=== PATIENT | female | born 1965 | race Caucasian/White ===

== ENCOUNTER → 2022-08-01 15:05 | Outpatient (BNVA) | payer OTHER, SELFPAY | PROVIDERS: Visit Provider Family Medicine | DX: R00.0 Tachycardia, unspecified (principal); E03.9 Hypothyroidism, unspecified | CPT/HCPCS: 80053; 80061; 84443; 85025 ==

== ENCOUNTER 2022-10-17 08:13 | Outpatient (CLI) | payer OTHER, SELFPAY ==
--- NOTE | 2022-10-17 08:25 | MM_ITS ---
WS: [id number] BILATERAL 3D TOMOSYNTHESIS DIGITAL SCREENING MAMMOGRAPHY WITH CAD CLINICAL INFORMATION: Z12.39 - Encounter for other screening for malignant neop... HISTORY: Screening mammogram. No current complaint COMPARISON: 2020 TECHNIQUE: Bilateral CC and MLO views. FINDINGS: Previous replacement of silicone breast implants with chronic nodular areas of extracapsula r silicone unchanged from previous Scattered fibroglandular densities bilaterally. Progressed slightly spiculated nodular density measur ing 8 mm upper outer LEFT breast adjacent to the implant. This is more prominent compared to previous . This may represent extracapsular silicone but Recommend further evaluation with LEFT diagnostic [place] mography and ultrasound. RIGHT breast is unremarkable. MM/[place] [id number] IMPRESSION: BI-RADS: 0-Incomplete: Need additional imaging evaluation FOLLOW UP: Need Additional Imaging Recommend further evaluation with LEFT diagnostic mammography and ultrasound.
== END 2022-10-17 08:14 | disposition home or self-care (01) ==
LOC: RAD 08:17
PROVIDERS: Visit Provider Family Medicine
DX: Z12.31 Encounter for screening mammogram for malignant neoplasm of breast (principal)
CPT/HCPCS: 77063; 77067

== ENCOUNTER → 2022-10-19 09:36 | Outpatient (BNVA) | payer OTHER, SELFPAY | PROVIDERS: Visit Provider Family Medicine | DX: Z12.4 Encounter for screening for malignant neoplasm of cervix (principal) | CPT/HCPCS: 87624 ==

== ENCOUNTER 2022-11-29 11:48 | Outpatient (CLI) | payer OTHER, SELFPAY ==
--- NOTE | 2022-11-29 11:52 | MM_ITS ---
WS: [id number] LEFT 3D TOMOSYNTHESIS DIGITAL MAMMOGRAPHY WITH CAD CLINICAL INFORMATION: ABNORMAL MAMMO HISTORY: Breast implants with previous revision additional views COMPARISON: 10/17/2022 TECHNIQUE: 3 views of the left breast were obtained. FINDINGS: Previous replacement of silicone breast implants with chronic nodular areas of extracapsula r silicone unchanged from previous. This partially compresses out on the spot compression views. Scattered fibroglandular densities of the left breast. Again seen is the 8 mm slightly spiculated nod ular density upper outer left breast adjacent to the implant. This is unchanged compared to previous. Ultrasound is pending. ULTRASOUND BREAST LEFT TECHNIQUE: Ultrasound left breast focused area of concern. CLINICAL INFORMATION: ABNORMAL MAMMO FINDINGS: Ultrasound upper outer quadrant left breast. At the 1 o'clock position 2 cm from the nipple there is a 1.2 x 1.2 x 0.7 cm dense shadowing focus adjacent to the implant compatible with extracapsular sili cone. No other suspicious findings. IMPRESSION: MM/[place] [id number] BI-RADS: 2-Benign FOLLOW UP: 1 Year Follow-up Recommend return to annual screening mammography.
== END 2022-11-29 11:49 | disposition home or self-care (01) ==
PROVIDERS: PCP Family Medicine; Visit Provider Family Medicine
DX: R92.8 Other abnormal and inconclusive findings on diagnostic imaging of breast (principal); Z98.82 Breast implant status
CPT/HCPCS: 76642; 77061; G0279

== ENCOUNTER → 2023-10-23 14:42 | Outpatient (BNVA) | payer OTHER, SELFPAY | PROVIDERS: PCP Family Medicine; Visit Provider Family Medicine | DX: Z13.6 Encounter for screening for cardiovascular disorders (principal); Z13.1 Encounter for screening for diabetes mellitus; Z13.220 Encounter for screening for lipoid disorders; R00.0 Tachycardia, unspecified; I10 Essential (primary) hypertension | CPT/HCPCS: 80053; 80061; 84443; 85025; 93005 ==

== ENCOUNTER 2023-12-02 09:17 | Outpatient (CLI) | payer OTHER, SELFPAY ==
--- NOTE | 2023-12-02 09:26 | MM_ITS ---
WS: [id number] BILATERAL SCREENING DIGITAL BREAST MAMMOGRAPHY WITH OPHELIA DISPLACEMENT VIEWS. CAD PERFORMED. HISTORY: SCREENING COMPARISON: 11/29/2022, 10/17/2022, 10/01/2019 Bilateral craniocaudal and mediolateral oblique views are performed with tomosynthesis and SM. Ophelia displacement views in CC and MLO projection also performed. Breasts composition: There are scattered areas of fibroglandular density. Implants are prepectoral. Nodular areas of increased density surrounding the LEFT breast implant have been previously described and consistent with extracapsular silicone. No suspicious mass or calcific ations. No interval change. The silicone has been present since 2019 surrounding the LEFT breast impl ant. MM/[place] [id number] IMPRESSION: BI-RADS: 2-Benign FOLLOW-UP: 1 Year Follow-up
== END 2023-12-02 09:18 | disposition home or self-care (01) ==
LOC: RAD 09:19
PROVIDERS: PCP Family Medicine; Visit Provider Family Medicine
DX: Z12.31 Encounter for screening mammogram for malignant neoplasm of breast (principal); R92.323 Mammographic fibroglandular density, bilateral breasts; Z98.82 Breast implant status
CPT/HCPCS: 77063; 77067

== ENCOUNTER → 2024-03-24 10:39 | Outpatient (BNVA) | payer OTHER, SELFPAY | PROVIDERS: PCP Family Medicine; Visit Provider Family Medicine | DX: J40 Bronchitis, not specified as acute or chronic (principal); J98.8 Other specified respiratory disorders; B97.89 Other viral agents as the cause of diseases classified elsewhere | CPT/HCPCS: 87400; 87426 ==

== ENCOUNTER → 2024-08-17 10:43 | Outpatient (BNVA) | payer OTHER, SELFPAY | PROVIDERS: PCP Family Medicine; Visit Provider Family Medicine | DX: I10 Essential (primary) hypertension (principal); R00.0 Tachycardia, unspecified; R94.4 Abnormal results of kidney function studies | CPT/HCPCS: 80048; 80061 ==

== ENCOUNTER 2024-12-07 09:11 | Outpatient (CLI) | payer OTHER, SELFPAY ==
--- NOTE | 2024-12-07 09:30 | MM_ITS ---
WS: [id number] Bilateral screening 3D tomosynthesis digital mammogram, 12/07/2024 9:33 AM Clinical Data: SCREENING Comparison: 12/02/2023, 11/29/2022, 10/17/2022, 10/01/2019, 07/23/2017. Findings: No spiculated masses or clustered calcifications are seen. There are no secondary signs of carcinoma. There is extra implant silicone noted on the medial aspect of the left breast. There is also extra implant silicone at the 1 o'clock position in the upper outer quadrant of the left breast unchanged. The implants otherwise appear intact. MM/MM scr BI tomosynthesis [id number] Impression: Negative bilateral mammogram unchanged with extra implant silicone in the left breast. Recommend annual screening mammograms. BIRADS: 2 - Benign. FOLLOW UP: 1 Year Follow-up DENSITY: There are scattered areas of fibroglandular density. The CAD furnace checker was used
== END 2024-12-07 09:12 | disposition home or self-care (01) ==
LOC: RAD 09:13
PROVIDERS: PCP Family Medicine; Visit Provider Family Medicine
DX: Z12.31 Encounter for screening mammogram for malignant neoplasm of breast (principal); Z98.82 Breast implant status
CPT/HCPCS: 77063; 77067